=== PATIENT | female | born 1985 | race Two or more races ===

== ENCOUNTER 2016-07-15 16:55 | Emergency (ER) | payer MEDICAID ==
[~2016-07-15] VITALS: Ht 154.9 cm; Wt 51.3 kg
[2016-07-15 17:25] LABS: Basophils # (auto) 0 uL; Basophils % (auto) 0.4 % (0.0-2.0); Eosinophils # (auto) 0 uL; Eosinophils % (auto) 0.4 % (0.0-7.0); Hematocrit 39.4 % (36.0-46.0); Hemoglobin 12.9 g/dL (12.2-16.2); Lymphocytes # (auto) 1.8 uL; Lymphocytes % (auto) 21.5 % (10.0-50.0); Mean Corpuscular Hemoglobin 28.8 pg (28.0-32.0); Mean Corpuscular Hgb Conc. 32.6 g/dL (32.0-36.0); Mean Corpuscular Volume 88.2 fL (80.0-100.0); Mean Platelet Volume 7.6 fL (7.4-10.4); Monocytes # (auto) 0.5 uL; Monocytes % (auto) 6.4 % (0.0-12.0); Neutrophils # (auto) 6.1 uL; Neutrophils % (auto) 71.3 % (37.0-80.0); Platelet Count (auto) 321 10^3/uL (140-450); Red Cell Distribution Width 14.2 % (11.6-16.0); White Blood Cell 8.6 10^3/uL (4.4-10.8)
[2016-07-15 17:54] LABS: Albumin 3.8 g/dL (3.4-5.0); BUN/Creatinine Ratio 16.7; Bilirubin, Total 0.3 mg/dL (0.2-1.0); Calcium 8.4 mg/dL (8.5-10.1); Total Protein 7.1 g/dL (6.4-8.2)
[2016-07-15 18:12] LABS: Urine Bilirubin Negative (Negative); Urine Blood Negative /uL (Negative); Urine Color Yellow (Yellow); Urine Glucose Normal (Normal); Urine Ketone Negative (Negative); Urine Nitrite Negative (Negative); Urine RBC <1 /hpf (0 - 4); Urine Squamous Epithelial Cell FEW /hpf (<5); Urine Urobilinogen Normal (Negative)
[2016-07-15 18:15] LABS: Potassium 3.8 mmol/L (3.5-5.1)
[2016-07-15 21:44] LABS: Amylase 72 U/L (25-115)
[2016-07-15 23:11] VITALS: BP 111/59
[2016-07-16] MEDS ORDERED: IOHEXOL 300 MG/ML 100ML BOTTLE IJ ONE (01:03)
[2016-07-16] MEDS ORDERED: GASTROGRAFIN 30 ML SOL ONE (01:03)
== END 2016-07-16 03:17 | disposition home or self-care (01) ==
LOC: ER 16:57
DX: K29.70 Gastritis, unspecified, without bleeding (principal); K76.89 Other specified diseases of liver
CPT/HCPCS: 36415; 76705; 80053; 81001; 82150; 83690; 84702; 85025; 99285; Q9963